=== PATIENT | female | born 2005 | race Two or more races ===

== ENCOUNTER 2023-06-02 22:24 | Emergency (ER) | payer MEDICAID, OTHER ==
[~2023-06-02] VITALS: Ht 160 cm; Wt 59.1 kg
[2023-06-02 22:45] VITALS: BP 116/72
[2023-06-02 23:32] LABS: COVID19 ANTIGEN SOFIA FIA NEGATIVE (NEGATIVE)
[2023-06-02 23:33] LABS: Rapid Influenza B Negative (Negative)
[2023-06-02 23:34] LABS: Rapid Influenza A Positive (Negative)
[2023-06-03] MEDS ORDERED: OSEL75CA5 PO (00:11)
[2023-06-03] MEDS ORDERED: PROM1SOL4 PO (00:11)
[2023-06-03] MEDS ORDERED: IBUP-1454 PO (00:11)
[2023-06-03 01:10] VITALS: PULSE 75; RESP 18; O2SAT 100
== END 2023-06-03 01:12 | disposition home or self-care (01) ==
LOC: ER 22:24
DX: J11.1 Influenza due to unidentified influenza virus with other respiratory manifestations (principal); Z20.822 Contact with and (suspected) exposure to COVID-19
CPT/HCPCS: 36415; 87426; 87804